=== PATIENT | female | born 1975 | race Caucasian/White ===

== ENCOUNTER 2018-06-26 18:33 | Emergency (ER) | payer OTHER ==
[~2018-06-26] VITALS: Ht 160 cm; Wt 69.0 kg
[2018-06-26 18:45] VITALS: BP 110/77
== END 2018-06-26 19:36 | disposition home or self-care (01) ==
LOC: ED 19:10
DX: L29.9 Pruritus, unspecified (principal)
CPT/HCPCS: 99283